=== PATIENT | male | born 1970 | race Two or more races ===

== ENCOUNTER 2017-05-18 15:39 | Inpatient (IN) | payer OTHER ==
[~2017-05-18] VITALS: Ht 208.3 cm; Wt 102.1 kg
--- NOTE | ~2017-05-18 | DS ---
Unit #: [id number] #: [id number] Patient: CUONG BARRIENTOS [id number] [address] [address] [id number] I MR#: [id number] NAME: CUONG BARRIENTOS. ROOM: 566 Age: 46 Sex: M Admission Date: 05/18/2017 : 1970 Discharge Date: 05/23/2017 Attending Physician: Shu Gomez M.D. Primary Care Physician: [facility] DISCHARGE SUMMARY PRINCIPAL DIAGNOSES 1. Acute systolic congestive heart failure with ejection fraction of 45% to 50%. 2. Acute on chronic diastolic congestive heart failure with ejection fraction of 50%. 3. Left thigh cellulitis. 4. Diabetes mellitus type 2, insulin requiring and controlled with hemoglobin A1c of 6.9. 5. Hypertension, uncontrolled. 6. Acute kidney injury, prerenal. Discharge creatinine 1.2. 7. Chronic obstructive pulmonary disease. 8. Pulmonary hypertension. 9. Hepatitis C. 10. Bipolar disorder. 11. Hypokalemia. 12. Moderate protein malnutrition. 13. Nonsustained ventricular tachycardia. 14. Chronic pancreatitis. 15. Hyperlipidemia. 16. Prior history of stroke. 17. Chronic low-back pain. 18. Moderate protein malnutrition. ENGRAVER LETTER Dr. Willis, Cardiology. PROCEDURES 1. A two-dimensional echocardiogram on May 19, 2017 with an ejection fraction of 45% to 50%. Hypokinetic motion in the anterior septal ga noted in the left ventricle. Pseudonormalization consistent with grade 2 diastolic dysfunction noted. E-to-E prime 15. Kkjp-ox-xmlsjkaq tricuspid regurgitation with a right ventricular systolic pressure of 47 mmHg. 2. Chest x-ray on May 18, 2017 with bilateral mid and lower lung interstitial opacities, small consolidation present in the right base. CLINICAL HISTORY AND HOSPITAL COURSE Mr. Benjamin Handley is a very nice 46-year-old Citizen Of [place]-speaking male, who presents to the emergency department with shortness of breath and swelling. In the emergency department, patient was found to have significant anasarca. He was also mildly hypoxic due to pulmonary edema and significant cardiogenic ascites. BNP was only mildly elevated at 200. The patient was subsequently admitted. Unit #: [id number] #: [id number] Patient: CUONG BARRIENTOS The patient was placed on fluid restriction, IV diuretics. Cardiology was consulted. A two-dimensional echocardiogram was done revealing biventricular failure. Fortunately with diuresis, the patient has improved significantly. He has lost almost 17 pounds since hospitalization. His hypoxia is resolved and he feels significantly improved. Plan is to maximize medical therapy and perhaps on an outpatient basis once he is medically stable proceed with heart cath given his hypokinetic motion on anteroseptal wall on an outpatient basis. Examination also revealed a mild cellulitis around a scab of the left knee. He was placed on Keflex and had improvement. I am going to avoid Bactrim therapy given his mildly elevated creatinine. Can follow this up as an outpatient and local wound care only. Patient also has underlying diabetes for which he is on U500 insulin at home with good blood sugar control. He can continue his home dose of medications. Patient's other chronic conditions all remain stable. He will be discharged home today. DISCHARGE CONDITION Stable. DISCHARGE STATUS Discharge to home. DISCHARGE MEDICATIONS 1. Ventolin inhaler one puff every six hours p.r.n. for shortness of breath. 2. Symbicort 160/4.5 mcg two puffs b.i.d. 3. DuoNeb nebulizer treatments 3 mL every four to six hours p.r.n. for shortness of breath. 4. Amitriptyline 50 mg two tablets at bedtime p.r.n. for insomnia. 5. Celexa 20 mg daily. 6. Cymbalta 60 mg daily. 7. Metformin at home dose b.i.d. 8. Zofran 4 mg p.o. q.4-6 hours p.r.n. for nausea and vomiting. 9. Coreg 25 mg b.i.d. 10. Norvasc 10 mg daily. 11. Bumex 1 mg b.i.d. 12. Fenofibrate 160 mg daily. 13. Lipitor 40 mg at bedtime. 14. Lisinopril 20 mg b.i.d. 15. Humulin R U500 at 45 units subcutaneous b.i.d. 16. NovoLog 10 units subcutaneous t.i.d. with meals. 17. Fish oil 1000 mg two capsules p.o. daily. 18. Aspirin 81 mg daily. 19. Potassium chloride 20 mEq p.o. b.i.d. 20. Keflex 500 mg p.o. b.i.d. DISCHARGE INSTRUCTIONS 1. The patient was instructed to follow a heart healthy constant carb diet. 2. He should follow a 3988-8803 mL fluid restricted diet. 3. He can continue Accu-Cheks a.c. and at bedtime at home. 4. He can increase his activity as tolerated. 5. We did briefly discuss a low-salt diet as well. Unit #: [id number] #: [id number] Patient: CUONG BARRIENTOS The patient will follow up with cardiology in the next three to four weeks. Please note, all medications with the exception of Keflex, which was new, were refilled x3. Dictated by... Shu Gomez M.D. MATHEW/luis fernando TD: 05/24/2017 14:06 JOB #: [id number] DISCHARGE SUMMARY Page 1 of 1 X Shu Gomez MD X DISCHARGE SUMMARY
--- NOTE | ~2017-05-18 | EKG ---
PATIENT: CUONG BARRIENTOS UNIT #: [id number] Ventricular Rate: 104 BPM Atrial Rate: 104 BPM P-R Interval: 164 ms QRS Duration: 84 ms Q-T Interval: 348 ms QTC Calculation(Bezet): 457 ms P [place]: 40 degrees Calculated R [place]: 34 degrees Calculated T [place]: 120 degrees Diagnosis Line: Sinus tachycardia Diagnosis Line: Abnormal QRS-T angle, consider primary T wave Diagnosis Line: abnormality Diagnosis Line: Abnormal ECG Diagnosis Line: Diagnosis Line: Confirmed by GABRIELA ALCANTAR MD ([id number]) on Diagnosis Line: 05/19/2017 9:04:22 AM INTERPRETING MD: KATHARINE TONG
--- NOTE | ~2017-05-18 | CO ---
Unit #: [id number] #: [id number] Patient: CUONG BARRIENTOS [id number] [address] [place], [place] [address] [id number] I MR#: [id number] NAME: CUONG BARRIENTOS ROOM: 566 Age: 46 Sex: M Admission Date: 05/18/2017 : 1970 Attending Physician: Shu Gomez M.D. Primary Care Physician: [facility] CONSULTATION REPORT REASON FOR CONSUTATION Chest pain HISTORY OF PRESENT ILLNESS This is a pleasant , Danish-speaking male with a past medical history of hypertension, diabetes mellitus, hyperlipidemia, cerebrovascular accident with some residual left-sided weakness, COPD, hepatitis C status post treatment, chronic pancreatitis, bipolar disorder, reported history of cirrhosis. The patient states he presented to [facility] yesterday secondary to increasing shortness of breath, lower extremities swelling, high blood sugar and high blood pressure. He was seen and evaluated and sent to the emergency room for further evaluation. On arrival to the emergency room, the patient was noted to be extremely hypertensive and had extremely elevated blood sugar. Glucose was in the upper 200s to 300 range and blood pressure was found to be elevated. He received 20 mg of IV Labetalol with an increase actually in blood pressure and proceeded to receive an additional 0.2 mg of clonidine as well as 10 mg of hydralazine and 12.5 mg of carvedilol. The patient also received Lasix 40 mg IV push secondary to volume overload. BMP was found to be elevated at 199. Chest x-ray shows stable bilateral mid and lower zone interstitial opacities, small consolidation in the right base. The patient also was complaining of chest pain. Cardiac enzymes were performed, which have been negative to this point. EKG was done which shows sinus tachycardia at a rate of 104 beats per minute. No acute ischemic changes seen. It is notable the patient did have a Lexiscan Cardiolite at [facility] August 2016, was noted to be abnormal, but no large areas of stress induced ischemia. We were asked to see and evaluate for the above-reasons. PAST MEDICAL HISTORY 1. Hypertension 2. Hyperlipidemia 3. Diabetes mellitus 4. Cardiovascular accident with residual left-sided weakness 5. Chronic obstructive pulmonary disease 6. Hepatitis C 7. History of chronic pancreatitis 8. Bipolar disorder 9. Reported history of cirrhosis of the liver. PAST SURGICAL HISTORY Debridement for infections in his back and foot. Removal of one testicle. [facility] Unit #: [id number] #: [id number] Patient: CUONG BARRIENTOS No known drug allergies HOME MEDICATIONS 1. Carvedilol 12.5 mg p.o. daily 2. Ventolin one puff inhalation every 6 hours p.r.n. 3. Aspirin 81 mg p.o. daily 4. Furosemide 40 mg p.o. daily 5. Lipitor 40 mg p.o. daily 6. Symbicort 160-4.5 two puffs inhalation b.i.d. 7. K-Dur 20 mEq p.o. daily 8. Amitriptyline 50 mg two tablets at bedtime 9. Bumex 1 mg p.o. daily 10. Celexa 20 mg p.o. daily 11. Cymbalta 60 mg p.o. daily 12. Divalproex sodium ER three tablets p.o. at bedtime 13. Fish oil two caps p.o. daily 14. Fenofibrate 160 mg p.o. daily 15. Humulin-R U-100, 45 units subcutaneous twice daily 16. Mini neb inhalers ipatropium Albuterol as needed 17. Glucophage 2 tablets p.o. b.i.d. 18. Naproxen 500 mg p.o. b.i.d. 19. Novolog flex pen 10 units subcutaneous t.i.d. 20. Proventil 2 puffs inhalation q.i.d. as needed 21. Zofran 4 mg p.o. every 4-6 hours p.r.n. FAMILY HISTORY Denies any family history for coronary artery disease. Does report family history of diabetes in his mother. REVIEW OF SYSTEMS Difficult to obtain secondary to language barrier. Was positive above for what was stated in the History of Present Illness. The patient does speak some limited Macedonian; however, I did obtain most of the information via recordings librarian. PHYSICAL EXAMINATION GENERAL: This is a pleasant 46-year-old obese, male, who is in no acute distress. VITAL SIGNS: Temperature 97.3, respiratory rate 18-20, pulse 89, blood pressure 142/88. HEENT: Head is atraumatic and normocephalic. Pupils are equal and round. Pharynx is benign. Mucous membranes are moist. NECK: Supple. No thyromegaly or adenopathy. Normal carotid upstrokes. No JVD. CARDIAC: S1 and S2. No murmur, gallop, or rub. LUNGS: Clear to auscultation anterior. Scattered wheezes in the posterior lobes with some fine rales in the bases. ABDOMEN: Distended, appears tense. Hepatomegaly. No masses. However, the masses are unable to be palpated secondary to abdominal distension and swelling. EXTREMITIES: Pulses are palpable. 2+ lower extremity edema bilaterally. No clubbing or cyanosis. NEUROLOGIC: The patient is awake, alert, and oriented. He moves all extremities. He follows commands without difficulty. DIAGNOSTIC DATA LABORATORY: Sodium 138, potassium 4.1, chloride 102, CO2 of 28, BUN 15, creatinine 1.1, glucose 294. Hemoglobin 13.2, hematocrit 39.6, WBC is Unit #: [id number] #: [id number] Patient: CUONG BARRIENTOS R 9.3, platelet count 257,000. AST 71, ALT 92, ALP 79. BNP 199, troponin was less than 0.05 and then repeat was 0.05. IMAGING: Chest x-ray shows stable bilateral mid and lower zone predominant interstitial opacities and small consolidation in the right base. CARDIOLOGY: EKG shows sinus tachycardia, rate of 104 beats per minute . QTc interval is 457 msec, nonspecific ST T-wave abnormalities noted. No acute ischemic change. IMPRESSION 1. Volume overload: Last ejection fraction was 55% per [facility] in 2012. Probable diastolic congestive heart failure. 2. Accelerated hypertension. 3. Chest pain: Rule out acute coronary syndrome. 4. History of stroke with residual left-sided weakness. 5. History of hepatitis C status post treatment many years ago. 6. History of reported cirrhosis. 7. Hyperlipidemia. 8. Obesity. PLAN 1. We will check 2-D echocardiogram to reassess left ventricular systolic function. We will trend cardiac enzymes. Continue with aggressive dieresis. 2. The patient will be placed on low-sodium, fluid restricted diet. He will need strike intake and output and daily weights. We will also check fasting lipid profile to blood in lab. 3. We will continue aggressive medicines for blood pressure control. 4. At this time, there is no need for repeat exercise stress test as the patient did have one in August [address] [facility] that was read with no large areas of stress induced ischemia. If he does continue to have chest pain or his enzymes increase, could consider cardiac catheterization as a next step. As the patient is high risk for coronary artery disease. Further recommendations pending Dr. Thompson's assessment. Dictated by... Mimi Villatoro/to TD: 05/19/2017 15:45 JOB #: [id number] Unit #: [id number] #: [id number] Patient: CUONG BARRIENTOS CONSULTATION REPORT Page 1 of 1 X Katherine Carballo APRN X CONSULTATION REPORT
--- NOTE | ~2017-05-18 | A ---
[facility] Nutrition Therapy DATE: 05/19/17 Patient: CUONG SOUZA YAHIR Physician: YULIANA Address: [address] [place] [address] Room/Bed: [address] [place] [address], Zip: [place] [address] Admit Date: 05/18/17 Date of : [birth year] Height: 6 10 Weight: 241 109.6 NUTRITIONAL ASSESSMENT: REASON: Consult re: DM diet education 46 y/o male admitted for HTN, fluid overload PMH: DM, CVA, COPD, pancreatitis Anthropometrics: ht: 6'0" wt: 241# (109 kg) BMI 32 Labs: Glu 294, Accuchecks 260-193, Alb 2.3, AST 71, Alt 92, HgbA1c 7.4 Assessment: Chart reviewed, events noted. Pt seen for consult re: DM diet education. Pt reports eating anything he wants, but small portions. He eats breakfast, lunch, and dinner, typically eating a sandwich on white bread, fruits and vegetables, and he drinks diet soda. RD internet webmaster provided written and verbal diet education on carbohydrate counting and T2DM medical nutrition therapy. Pt had no questions at this time. RD will remain available. Intervention: 1. DM diet education Recommendations: 1. Follow DM diet education given when d/c'd home. Respectfully, MAGGIE VILLA, internist kolby Augustin RD, LD [facility] cc: client file
--- NOTE | ~2017-05-18 | HP ---
Unit #: [id number] #: [id number] Patient: CUONG BARRIENTOS [id number] [address] [address] [id number] I MR#: [id number] NAME: CUONG BARRIENTOS ROOM: 568 Age: 46 Sex: M Admission Date: 05/18/2017 : 1970 Attending Physician: Mckenna Cagle M.D. Primary Care Physician: [facility], [facility]. HISTORY AND PHYSICAL CHIEF COMPLAINT Shortness of breath, fluid overload, uncontrolled hypertension, uncontrolled diabetes mellitus. HISTORY This pleasant 46-year-old male with AODM, CVAs, hepatitis C, hypertension, is admitted for shortness of breath. The patient relates that he was admitted to [facility] four months ago. Sounds as if he had an echocardiogram done, and possibly an event recorder was placed. I am unsure. He also tells me that an MRI scan was performed and he was noted to have multiple CVAs. Recently he has developed increasing dyspnea on exertion with intermittent sharp nonradiating chest discomfort, increasing swelling and uncontrolled hypertension. Sugars have also been difficult to control. He was sent to this facility where he does have fluid overload on exam. Chest x-ray however does not show actual CHF. His BNP is modestly elevated. His initial blood pressure was 179/94. Despite 20 mg of IV labetalol his blood pressure has increased. He was therefore given clonidine 0.2 mg p.o. along with Lasix 40 mg IV. PAST MEDICAL HISTORY 1. Multiple CVAs, patient states that he is weak on the left side, and has visual loss left eye. 2. History of MRSA pneumonia. 3. COPD. 4. Chronic pancreatitis. 5. Hepatitis C. 6. AODM. 7. Essential hypertension. 8. Bipolar disorder. 9. Chronic low back pain. 10. Tachycardia. 11. Debridement surgery for Shalini gangrene. 12. Jaw surgery. ALLERGIES No known drug allergies HOME MEDICATIONS I have a medication list from [facility] which makes mention of: 1. Aspirin 81 mg daily. 2. Elavil 50 mg two tablets q.h.s. p.r.n. Unit #: [id number] #: [id number] Patient: SOUZA YAHIR,CUONG R 3. Lipitor 40 mg daily. 4. Bumex 1 mg daily. 5. Coreg 12.5 mg b.i.d. 6. Celexa 20 mg daily. 7. Cymbalta 60 mg daily. 8. Depakote 500 mg ER three tablets q.h.s. 9. Fish oil 1000 mg daily. 10. Fenofibrate 160 mg daily. 11. Lasix 40 mg daily. 12. Humulin R 45 units b.i.d. but patient also apparently takes NovoLog 10 units t.i.d. 13. DuoNeb p.r.n. 14. Metformin 500 mg two tablets b.i.d. 15. Naprosyn 500 mg b.i.d. 16. Omeprazole 40 mg daily. 17. Potassium 20 mEq daily. 18. Proventil p.r.n. 19. Zofran p.r.n. 20. Symbicort 160/4.5 two puffs b.i.d. FAMILY HISTORY Diabetes. SOCIAL HISTORY The patient lives with his and two children. He stopped smoking 08/25/2016. He does not drink alcohol, does not use illicit drugs. REVIEW OF SYSTEMS Difficult to obtain due to language barrier. The patient does speak fairly decent Romanian and I did use a chief vendor quality however. PHYSICAL EXAMINATION GENERAL: Pleasant, obese 46-year-old male currently in no acute distress. VITAL SIGNS: Temperature is 98.8. Pulse 110. Respirations 24. Blood pressure 179/94 but is now 200/118 despite treatment. O2 saturation 92% on room air. HEENT: Eyes PERRLA, extraocular muscles are intact. Pharynx is benign. NECK: Supple, without adenopathy or thyromegaly. NO JVD noted. CHEST: Is fairly clear. CARDIAC: Normal S1 and S2, without S3, S4 or murmur. ABDOMEN: Bowel sounds are present. No hepatosplenomegaly, tenderness or masses. EXTREMITIES: Notable for pitting edema of the lower extremities bilaterally about 2 to 3+. No ulcers on the feet. Pedal pulses are present. Patient has a left thigh wound which looks to be cellulitic. NEUROLOGIC EXAM: Patient is awake, alert, oriented. Cranial nerves are intact. Equal strength throughout. DIAGNOSTIC STUDIES LABORATORY: Hematocrit is 39.9, normal white count, platelet count and coags. SMA-7: Glucose is 310, potassium 3.4. Cardiac markers are negative. BNP is 199. IMAGING: Chest x-ray stable bilateral mid and lower zone predominant interstitial opacities and small consolidation within the right base. CARDIOVASCULAR: EKG sinus tachycardia, rate 104, nonspecific ST wave abnormalities. Unit #: [id number] #: [id number] Patient: CUONG BARRIENTOS ASSESSMENT 1. Fluid overload, which may be on the basis of accelerated hypertension. Patient was admitted to [facility] four months ago, had an echo performed, was told that he had tachycardia, and I believe there is an event recorder in place. Will obtain records. 2. Accelerated hypertension. 3. Uncontrolled adult-onset diabetes mellitus. 4. Hepatitis C. 5. Left thigh wound. 6. Chronic obstructive pulmonary disease. 7. Multiple cerebrovascular accident. PLANS 1. IV Bumex. 2. Add hydralazine to Coreg. 3. Bactrim DS. 4. Diabetic control. 5. Check thyroid function test and urinalysis along with liver function tests. 6. Is and Os and daily weights. 7. Obtain records from [facility] and ask cardiology to see again in consultation. Dictated by Mckenna Cagle M.D. AML/cf TD: 05/18/2017 23:10 JOB #: [id number] HISTORY AND PHYSICAL Page 1 of 1 X Mckenna Cagle MD HISTORY AND PHYSICAL
--- NOTE | ~2017-05-18 | CR72 ---
[facility] A Service of [facility] & [facility] RADIOLOGY TEXT RESULTS PATIENT: CUONG BARRIENTOS LOCATION: [facility] 566-01 : [birth year] UNIT #: [id number] AGE: [address]: Mckenna Cagle MD SEX: M ORDER DR: [id number] [facility] [address] [facility]. [place], [place] [address] [id number] MR#: [id number] Acc #: [id number] NAME: CUONG BARRIENTOS : 1970 SEX: M STUDY DATE/TIME: 05/18/2017 16:33 UNIT: [facility] ROOM: STUDY DESCRIPTION: CR Chest Single View Portable Attending Physician: Tony Carbajal M.D. Ordering Physician: Mushtaq Pollock M.D. [facility] REPORT This report is preliminary unless electronic signature is present EXAM Portable chest INDICATIONS Shortness of breath for 4 days. COMPARISON Comparison with yesterday. FINDINGS There are stable bilateral interstitial opacities and stable consolidation within the right base. Heart size is stable. Visualized osseous structures are unremarkable. IMPRESSION Stable bilateral mid and lower zone predominant interstitial opacities and small consolidation within the right base. Dictated by... Artur Buenrostro M.D. THIS IS AN ELECTRONICALLY VERIFIED REPORT Artur Buenrostro M.D. at 05/19/2017 7:12 AM OLIVIA/neil TD: 05/18/2017 19:25 JOB #: [id number] MEDICAL IMAGING REPORT Page 1 of 1 COPY
[~2017-05-18 15:39] MED LIST: ALBUTEROL17 GM INH; ASPIRIN EC81 M1 PO; AUGMENTIN1 TAB.SR1 PO; BACTRIM DS TABL1 TA1 PO; CARVEDILOL6.25 MG PO; COMBIVENT RESPIM4 GM INH; FIORINAL 50-321 EACH PO; FLEXERIL10 MG PO; FLUOXETINE HCL20 M1 PO; FUROSEMIDE40 MG PO; GABAPENTIN400 M2 PO; GABAPENTIN400 MG; GENTAK5 ML OU; HUMULIN 70/30 V10 ML; HUMULIN R500 U/ML SUBQ; IBUPROFEN800 MG PO; INVOKANA100 MG PO; K-DUR20 ME1 PO; KEFLEX500 MG PO; LAMOTRIGINE100 MG PO; LANTUS100 UNITS/ SUBQ; LIPITOR PO; LIPITOR40 MG PO; LYRICA PO; MEDROL DOSEPAK4 MG PO; MOBIC PO; NAPHCON-A EYE D15 M1 OU; NORCO 7.5-3251 EACH PO; NOVOLIN N100 UNIT/1 SUBQ; NOVOLOG100 U/ML; PERIDEX480 ML PO; SULFAMETHOXAZOL1 TA4 PO; SYMBICORT INH; VICODIN 5/1 TAB 5/50 PO; VICODIN PO
[2017-05-18 16:38] LABS: POC - CKMB 11.9 ng/mL (0.0-7.9); POC - TROPONIN <0.05 ng/mL (<=0.05)
[2017-05-18 16:39] LABS: BASOPHIL% 0.5 % (0-2.5); EOSINOPHIL# 0.4 X10e3 (0-0.7); EOSINOPHIL% 4.4 % (0.0-7.0); HEMATOCRIT 39.9 % (38.0-50.0); HEMOGLOBIN 13.4 gm/dL (13.0-16.0); LYMPHOCYTE% 21.9 % (17.0-45.0); MEAN CORPUSCULAR HEMOGLOBIN 32.4 PG (28-34); MEAN CORPUSCULAR HGB CONC 33.7 g/dL (30-36); MEAN PLATELET VOLUME 8.6 FL (6.5-11.5); MONOCYTE% 11.1 % (3.0-12.0); NEUTROPHIL# 5.8 X10e3 (1.5-7.1); NEUTROPHIL% 62.1 % (40-75); PLATELET COUNT 309 X10e3 (140-420); RED BLOOD COUNT 4.15 X10e (3.90-5.60); RED CELL DISTRIBUTION WIDTH 13.6 % (11.0-15.5); WHITE BLOOD COUNT 9.3 X10e3 (4.0-10.5)
[2017-05-18 16:43] LABS: DIFF IND NO
[2017-05-18 16:52] LABS: INR 0.9; PARTIAL THROMBOPLASTIN TIME 24.1 SECONDS (23.5-31.3); PROTHROMBIN TIME (PATIENT) 10.2 SECONDS (10.0-11.7)
[2017-05-18 17:25] LABS: BUN/CREATININE RATIO 17.5; CALCIUM SERUM 8.9 mg/dL (8.4-10.2); CREATININE SERUM 0.8 mg/dL (0.6-1.4); GLOM FILT RATE Estimated 107.9 mL/min (>60); POTASSIUM 3.4 mmol/L (3.5-5.1)
[2017-05-18 18:18] LABS: POC - CKMB 4.8 ng/mL (0.0-7.9); POC - TROPONIN <0.05 ng/mL (<=0.05)
[2017-05-18] MEDS ORDERED: BUMEX1 MG PO (19:34)
[2017-05-18] MEDS ORDERED: AMITRIPTYLINE H50 MG PO (19:34)
[2017-05-18] MEDS ORDERED: CELEXA20 MG PO (19:35)
[2017-05-18] MEDS ORDERED: DULOXETINE HCL60 MG PO (19:37)
[2017-05-18] MEDS ORDERED: [UNRECOGNIZED DRUG - OTHER] PO (19:39)
[2017-05-18] MEDS ORDERED: DIVALPROEX SOD500 M1 PO (19:39)
[2017-05-18] MEDS ORDERED: HUMULIN R500 UNIT/2 SUBQ (19:40)
[2017-05-18] MEDS ORDERED: FENOFIBRATE160 MG PO (19:40)
[2017-05-18] MEDS ORDERED: GLUCOPHAGE500 MG PO (19:41)
[2017-05-18] MEDS ORDERED: IPRAT-ALBUT 0.5-3 ML INH (19:41)
[2017-05-18] MEDS ORDERED: NOVOLOG FL100 UNIT/1 SUBQ (19:42)
[2017-05-18] MEDS ORDERED: NAPROSYN500 MG PO (19:42)
[2017-05-18] MEDS ORDERED: PROVENTIL INH (19:43)
[2017-05-18] MEDS ORDERED: ZOFRAN PO (19:44)
[2017-05-19 04:10] LABS: %MB 1.3 % (0.0-4.0); MB 3.5 ng/ml
[2017-05-19 06:03] LABS: BASOPHIL# 0.1 X10e3 (0-0.3); BASOPHIL% 0.6 % (0-2.5); EOSINOPHIL# 0.4 X10e3 (0-0.7); EOSINOPHIL% 4.4 % (0.0-7.0); HEMATOCRIT 39.6 % (38.0-50.0); HEMOGLOBIN 13.2 gm/dL (13.0-16.0); LYMPHOCYTE% 21.1 % (17.0-45.0); MEAN CELL VOLUME 96.4 FL (83-96); MEAN CORPUSCULAR HEMOGLOBIN 32.1 PG (28-34); MEAN CORPUSCULAR HGB CONC 33.3 g/dL (30-36); MEAN PLATELET VOLUME 8.2 FL (6.5-11.5); MONOCYTE# 0.9 X10e3 (0-1.0); NEUTROPHIL% 63.9 % (40-75); PLATELET COUNT 257 X10e3 (140-420); RED BLOOD COUNT 4.11 X10e (3.90-5.60); RED CELL DISTRIBUTION WIDTH 13.7 % (11.0-15.5); WHITE BLOOD COUNT 9.3 X10e3 (4.0-10.5)
[2017-05-19 06:28] LABS: DIFF IND NO
[2017-05-19 06:52] LABS: FREE THYROXIN (T4) 0.79 ng/dL (0.58-1.64)
[2017-05-19 07:21] LABS: ALBUMIN SERUM 2.3 g/dL (3.5-5.0); BILIRUBIN,TOTAL 0.8 mg/dL (0.2-2.0); BUN/CREATININE RATIO 13.63; CALCIUM SERUM 8.7 mg/dL (8.4-10.2); CREATININE SERUM 1.1 mg/dL (0.6-1.4); GLOM FILT RATE Estimated 80.7 mL/min (>60); POTASSIUM 4.1 mmol/L (3.5-5.1); PROTEIN TOTAL SERUM 6.3 g/dL (6.0-8.3)
[2017-05-19 09:57] LABS: CHOLESTEROL 239 mg/dL (0-200); HDL CHOLESTEROL 30 mg/dL (29-75); LDL CHOLESTEROL 146 mg/dL ([, -130]); LDL/HDL RATIO 5 RATIO (0-4); TRIGLYCERIDES 313 mg/dL (10-160)
[2017-05-19 11:23] LABS: %MB 1.9 % (0.0-4.0)
[2017-05-20 05:11] LABS: HEMATOCRIT 40.2 % (38.0-50.0); HEMOGLOBIN 13.5 gm/dL (13.0-16.0); MEAN CELL VOLUME 96.3 FL (83-96); MEAN CORPUSCULAR HEMOGLOBIN 32.3 PG (28-34); MEAN CORPUSCULAR HGB CONC 33.5 g/dL (30-36); MEAN PLATELET VOLUME 7.7 FL (6.5-11.5); RED BLOOD COUNT 4.17 X10e (3.90-5.60); RED CELL DISTRIBUTION WIDTH 12.9 % (11.0-15.5); WHITE BLOOD COUNT 8.9 X10e3 (4.0-10.5)
[2017-05-20 05:43] LABS: BUN/CREATININE RATIO 18.18; CALCIUM SERUM 8.7 mg/dL (8.4-10.2); CREATININE SERUM 1.1 mg/dL (0.6-1.4); GLOM FILT RATE Estimated 80.7 mL/min (>60); MAGNESIUM 1.8 mg/dL (1.6-3.0); POTASSIUM 3.5 mmol/L (3.5-5.1)
[2017-05-21 06:42] LABS: BUN/CREATININE RATIO 17.69; CALCIUM SERUM 8.7 mg/dL (8.4-10.2); CREATININE SERUM 1.3 mg/dL (0.6-1.4); GLOM FILT RATE Estimated 65.9 mL/min (>60); MAGNESIUM 1.7 mg/dL (1.6-3.0); POTASSIUM 3.7 mmol/L (3.5-5.1)
[2017-05-22 07:10] LABS: BASOPHIL% 0.5 % (0-2.5); EOSINOPHIL# 0.4 X10e3 (0-0.7); EOSINOPHIL% 4.7 % (0.0-7.0); HEMATOCRIT 42.3 % (38.0-50.0); HEMOGLOBIN 14.2 gm/dL (13.0-16.0); LYMPHOCYTE# 2.6 X10e3 (1.0-3.5); LYMPHOCYTE% 28.8 % (17.0-45.0); MEAN CELL VOLUME 96.3 FL (83-96); MEAN CORPUSCULAR HEMOGLOBIN 32.2 PG (28-34); MEAN CORPUSCULAR HGB CONC 33.5 g/dL (30-36); MEAN PLATELET VOLUME 8.5 FL (6.5-11.5); MONOCYTE% 11.1 % (3.0-12.0); NEUTROPHIL% 54.9 % (40-75); PLATELET COUNT 284 X10e3 (140-420); RED BLOOD COUNT 4.39 X10e (3.90-5.60); RED CELL DISTRIBUTION WIDTH 13.2 % (11.0-15.5); WHITE BLOOD COUNT 9.2 X10e3 (4.0-10.5)
[2017-05-22 07:20] LABS: DIFF IND NO
[2017-05-22 07:56] LABS: BUN/CREATININE RATIO 26.36; CALCIUM SERUM 8.7 mg/dL (8.4-10.2); CREATININE SERUM 1.1 mg/dL (0.6-1.4); GLOM FILT RATE Estimated 80.7 mL/min (>60); POTASSIUM 3.9 mmol/L (3.5-5.1)
[2017-05-23 06:35] LABS: BUN/CREATININE RATIO 24.16; CALCIUM SERUM 8.5 mg/dL (8.4-10.2); CREATININE SERUM 1.2 mg/dL (0.6-1.4); GLOM FILT RATE Estimated 72.6 mL/min (>60); POTASSIUM 3.3 mmol/L (3.5-5.1)
[2017-05-23] MEDS ORDERED: NORVASC10 MG PO (09:57)
[2017-05-23] MEDS ORDERED: PRINIVIL20 M1 PO (09:59)
[2017-05-23] MEDS ORDERED: KEFLEX500 MG PO (09:59)
== END 2017-05-23 12:52 | disposition home or self-care (01) | DRG 292 ==
LOC: CED 15:39 → CEDOF 21:50 → CED 21:50 → CEDOF 22:00 → C5C 22:57 → CEDOF 22:57 → C5C 23:40
PROVIDERS: Emergency Medicine; Internal Medicine
PROC: B24BYZZ Ultrasonography of Heart with Aorta using Other Contrast (ICD-10-PCS; principal; 2017-05-19)
DX: I11.0 Hypertensive heart disease with heart failure (principal); I69.954 Hemiplegia and hemiparesis following unspecified cerebrovascular disease affecting left non-dominant side; I47.2 Ventricular tachycardia; E44.0 Moderate protein-calorie malnutrition; E11.65 Type 2 diabetes mellitus with hyperglycemia; K86.1 Other chronic pancreatitis; I27.2 Other secondary pulmonary hypertension; L03.116 Cellulitis of left lower limb; I50.41 Acute combined systolic (congestive) and diastolic (congestive) heart failure; Z79.84 Long term (current) use of oral hypoglycemic drugs; B19.20 Unspecified viral hepatitis C without hepatic coma; J44.9 Chronic obstructive pulmonary disease, unspecified; F31.9 Bipolar disorder, unspecified; Z79.82 Long term (current) use of aspirin; Z79.4 Long term (current) use of insulin; R07.9 Chest pain, unspecified; E66.9 Obesity, unspecified; Z68.32 Body mass index [BMI] 32.0-32.9, adult; E87.6 Hypokalemia; E78.5 Hyperlipidemia, unspecified; M54.5 Low back pain; G89.29 Other chronic pain
CPT/HCPCS: 36415; 71010; 80048; 80053; 80061; 82550; 82553; 82947; 83036; 83735; 83880; 84439; 84443; 84484; 85025; 85027; 85610; 85730; 93005; 93306; 94640; 94760; 96374; 97162; 97165; 97535; 99285; G8978-GP; G8979-GP; G8980-GP; G8987-GO; G8988-GO; G8989-GO; J0360; J1650; J1815; J1940